=== PATIENT | male | born 2000 | race Caucasian/White ===

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

== ENCOUNTER 2022-01-04 13:58 | Emergency (ER) | payer OTHER ==
[~2022-01-04] VITALS: Ht 167.6 cm; Wt 79.4 kg
[~2022-01-04 13:58] MED LIST changes: +PANT40TA2 PO
--- NOTE | 2022-01-04 14:15 | NUR ---
BIB RELATIVE C/O NAUSEA, VOMITING, EPIGASTRIC PAIN. AMBULATORY, AAOX4, IN PAIN 5/5.
--- NOTE | 2022-01-04 14:38 | NUR ---
AT BED SIDE
[2022-01-04] MEDS ORDERED: ONDANSETRON HCL/PF 4 MG/2 ML VIAL ONE ×2 (14:45→20:19)
[2022-01-04] MEDS ORDERED: MORPHINE SULFATE INJ 2 MG/ML DISP.SYRIN ONE (14:45)
[2022-01-04] MEDS ORDERED: IV NS 0.9% 1,000 ML BAG IV ONE (15:00)
[2022-01-04] MEDS ORDERED: MORPHINE SULFATE INJ 2 MG/ML DISP.SYRIN IV ONE (15:00)
[2022-01-04] MEDS ORDERED: ONDANSETRON HCL/PF 4 MG/2 ML VIAL IVP ONE (15:00)
--- NOTE | 2022-01-04 15:08 | NUR ---
U/S AT BED SIDE
[2022-01-04 15:13] LABS: BASOPHILS % (AUTO) 0.2 % (0.0-2.0); HEMATOCRIT 43 % (39-51); HEMOGLOBIN 14.4 g/dL (13.5-17.5); LYMPHOCYTES # (AUTO) 1.3 K/uL (0.8-4.8); LYMPHOCYTES % (AUTO) 9.1 % (20.0-44.0); MEAN CORPUSCULAR HGB CONC 34 g/dl (31.0-36.0); MEAN CORPUSCULAR VOLUME 78 fL (80-96); MONOCYTES # (AUTO) 1.2 K/uL (0.1-1.30); MONOCYTES % (AUTO) 8.3 % (2.0-12.0); NEUTROPHILS # (AUTO) 12.1 K/uL (1.8-8.9); NEUTROPHILS % (AUTO) 82.4 % (43.0-81.0); PLATELET COUNT (AUTO) 433 K/uL (150-450); RED BLOOD CELL COUNT(AUTO) 5.47 MIL/uL (4.5-6.0); WHITE BLOOD COUNT (AUTO) 14.7 K/uL (4.3-11.0)
[2022-01-04 15:24] LABS: CALCIUM, SERUM 10.6 mg/dL (8.5-10.1); CREATININE 1.6 mg/dL (0.6-1.3)
[2022-01-04 15:30] LABS: POTASSIUM 2.7 mmol/L (3.5-5.1)
[2022-01-04] MEDS ORDERED: IV PREMIX D5 1/2NS + KCL 1,000 ML IV ONE (15:30)
[2022-01-04 15:32] LABS: ALBUMIN 5.5 g/dL (3.4-5.0); BILIRUBIN,DIRECT 0.2 mg/dL (0.0-0.2); BILIRUBIN,TOTAL 1.2 mg/dL (0.2-1.0)
[2022-01-04 15:33] LABS: TOTAL PROTEIN, SERUM 9.6 g/dL (6.4-8.2)
--- NOTE | 2022-01-04 15:36 | NUR ---
CONTACTED [facility]ENTRAL SUPPLY [id number] WITH REGARDS TO PRE-MIX IV FLUID D5 1/2 NS + 20MEQ KCL IN 1000ML.
[2022-01-04] MEDS ORDERED: POTASSIUM CHLORIDE 20 MEQ TAB.PRT.SR PO ONE ×2 (16:00→16:24)
--- NOTE | 2022-01-04 16:15 | NUR ---
URINE SAMPLE COLLECTED AND SENT TO LAB.
[2022-01-04] MEDS ORDERED: ONDA4TAB5 PO (16:27)
[2022-01-04 16:56] LABS: BILIRUBIN,URINE SMALL (NEGATIVE); COLOR,URINE YELLOW (YELLOW); LEUKOCYTE ESTERASE ,URINE NEGATIVE (NEGATIVE); NITRITE, URINE NEGATIVE (NEGATIVE); PROTEIN,URINE 100 mg/dl (NEGATIVE); UGLUCOSE NEGATIVE (NEGATIVE)
[2022-01-04 17:27] LABS: BACTERIA,URINE RARE /HPF (None Seen); WBC,URINE 0-2 /HPF (0-3)
[2022-01-04] MEDS ORDERED: ONDANSETRON HCL/PF - ER 4 MG/2 ML VIAL IV ONE (20:30)
--- NOTE | 2022-01-04 22:03 | NUR ---
Patient discharged to home in stable condition. Written and verbal after care instructions given. Patient verbalizes understanding of instruction. IV line removed and PT ambulatory with steady gait.
[2022-01-04 22:05] VITALS: BP 123/67
== END 2022-01-04 22:05 | disposition home or self-care (01) ==
LOC: ER 14:20
DX: R11.2 Nausea with vomiting, unspecified (principal); E87.6 Hypokalemia; E86.0 Dehydration; R10.13 Epigastric pain; Z79.899 Other long term (current) drug therapy
CPT/HCPCS: 36415; 71045; 74176; 80048; 80076; 81001; 83690; 85025; 96361; 96365; 96366; 96375; 96376; 99285; J2270; J2405 ×3; J3490